=== PATIENT | female | born 1965 | race Caucasian/White ===

== ENCOUNTER 2021-08-30 20:05 | Emergency (ER) | payer MEDICAID, MEDICARE ==
[2021-08-30] MEDS ORDERED: Pantoprazole 40 MG VIAL ONE (21:10)
[2021-08-30] MEDS ORDERED: Morphine 4 MG/ML VIAL ONE (21:10)
[2021-08-30] MEDS ORDERED: Ondansetron PF 4 MG/2 ML Vial ONE (21:10)
[2021-08-30 21:14] LABS: #Basophils 0.1 thou/uL (0.0-0.2); #Eosinphils 0.3 thou/uL (0.0-0.7); #Lymphocytes 3.3 thou/uL (1.20-3.40); #Monocytes 1.7 thou/uL (0.11-0.59); #Neutrophils 7.9 thou/uL (1.40-6.50); %Basophils 0.4 % (0.0-1.0); %Eosinophils 2.5 % (0.0-10.0); %Lymphocytes 24.9 % (21.0-51.0); %Monocytes 12.6 % (0.0-10.0); %Neutrophils 59.5 % (42.0-75.0); Hemoglobin 14.5 g/dL (12.0-16.0); Mean Corpuscular HGB CONC 33.4 g/dL (32.0-36.0); Mean Corpuscular Volume 92.8 fL (78.0-98.0); Mean Platelet Volume 7.6 fL (7.4-10.4); Platelet Count 300 thou/uL (130-400); RBC Distribution Width 13.1 % (11.5-14.5); Red Blood Cell (RBC) Count 4.68 mill/uL (4.20-5.40); White Blood Cell (WBC) Count 13.3 thou/uL (4.8-10.8)
[2021-08-30 21:22] LABS: PTT 35.4 sec (22.9-36.1); Prothrombin Time 13.5 sec (12.0-14.7)
[2021-08-30 21:37] LABS: ALT (SGPT) 19 U/L (8-55); AST (SGOT) 17 U/L (5-34); Albumin 4.6 g/dL (3.5-5.0); Alkaline Phosphatase 151 U/L (40-110); Anion Gap 14 mmol/L (10-20); BUN (Urea Nitrogen) 8 mg/dL (9.8-20.1); Bilirubin, Total 0.4 mg/dL (0.2-1.2); Calc. Creatinine Clearance 0 mL/min (70-130); Calcium 9.8 mg/dL (7.8-10.44); Carbon Dioxide 25 mmol/L (22-29); Chloride 103 mmol/L (98-107); Globulin 3.5 g/dL (2.4-3.5); Glucose 157 mg/dL (70-105); Lipase 55 U/L (8-78); Potassium 3.6 mmol/L (3.5-5.1); Protein, Total 8.1 g/dL (6.0-8.3); Sodium 138 mmol/L (136-145)
== END 2021-08-30 22:44 | disposition home or self-care (01) ==
LOC: ERS 20:05
DX: R11.2 Nausea with vomiting, unspecified (principal); R19.7 Diarrhea, unspecified; E11.9 Type 2 diabetes mellitus without complications
CPT/HCPCS: 36415; 74177; 80053; 82274; 83605; 83690; 85025; 85610; 85730; 86850; 86900; 86901; 94760; 96374; 96375; C9113; J2270; J2405

== ENCOUNTER 2021-08-31 16:37 | Inpatient (IN) | payer MEDICARE, MEDICAID ==
[~2021-08-31 16:37] MED LIST: Iopamidol-370 76% 500 ML 1 ML ONE
[2021-08-31] MEDS ORDERED: Ondansetron PF 4 MG/2 ML Vial ONE (17:34)
[2021-08-31] MEDS ORDERED: Morphine 4 MG/ML VIAL ONE ×2 (17:34→19:44)
[2021-08-31] MEDS ORDERED: Morphine 2 MG/ML VIAL ONE (17:34)
[2021-08-31 17:39] LABS: #Basophils 0.1 thou/uL (0.0-0.2); #Eosinphils 0.4 thou/uL (0.0-0.7); #Lymphocytes 3.6 thou/uL (1.20-3.40); #Monocytes 1.3 thou/uL (0.11-0.59); #Neutrophils 10.5 thou/uL (1.40-6.50); %Basophils 0.6 % (0.0-1.0); %Eosinophils 2.4 % (0.0-10.0); %Lymphocytes 22.7 % (21.0-51.0); %Monocytes 8.2 % (0.0-10.0); %Neutrophils 66.1 % (42.0-75.0); Hemoglobin 14.8 g/dL (12.0-16.0); Mean Corpuscular HGB CONC 34.5 g/dL (32.0-36.0); Mean Corpuscular Hemoglobin 31.7 pg (27.0-31.0); Mean Platelet Volume 7.6 fL (7.4-10.4); Platelet Count 356 thou/uL (130-400); Red Blood Cell (RBC) Count 4.67 mill/uL (4.20-5.40); White Blood Cell (WBC) Count 15.8 thou/uL (4.8-10.8)
[2021-08-31 17:49] LABS: ALT (SGPT) 19 U/L (8-55); AST (SGOT) 21 U/L (5-34); Albumin 4.6 g/dL (3.5-5.0); Alkaline Phosphatase 146 U/L (40-110); Anion Gap 13 mmol/L (10-20); BUN (Urea Nitrogen) 6 mg/dL (9.8-20.1); Bilirubin, Total 0.5 mg/dL (0.2-1.2); Calc. Creatinine Clearance 0 mL/min (70-130); Calcium 9.8 mg/dL (7.8-10.44); Carbon Dioxide 23 mmol/L (22-29); Chloride 103 mmol/L (98-107); Globulin 3.6 g/dL (2.4-3.5); Glucose 188 mg/dL (70-105); Lipase 67 U/L (8-78); Potassium 3.8 mmol/L (3.5-5.1); Protein, Total 8.2 g/dL (6.0-8.3); Sodium 135 mmol/L (136-145)
[2021-08-31 17:51] LABS: INR-International Normal Ratio 0.9; PTT 34.6 sec (22.9-36.1); Prothrombin Time 12.7 sec (12.0-14.7)
[2021-08-31 18:40] LABS: Bilirubin Negative (Negative); Blood, Urine Negative (Negative); Clarity Clear (Clear); Glucose, Urine (Dipstick) Normal (Negative); Ketone, Urine Negative (Negative); Leukocyte Negative Leu/uL (Negative); Nitrite Negative (Negative); Protein, Urine (Dipstick) Negative (Neg-Trace); Specific Gravity, Urine 1.014 (1.002-1.036); Urobilinogen Normal mg/dL (Less than 2); pH, Urine 6.5 (5.0-9.0)
[2021-08-31] MEDS ORDERED: Piperacillin/Tazobactam 3.375 GM VIAL ONE (19:32)
[2021-08-31] MEDS ORDERED: Glycopyrrolate 0.2 MG/ML 5 ML SYRINGE SLOW IVP SCH (19:45)
[2021-08-31 20:20] LABS: Lactic Acid 1.2 mmol/L (0.5-2.2)
[2021-08-31] MEDS ORDERED: Dextrose 50% Abboject 50 ML SYRINGE SLOW IVP PRN (21:36)
[2021-08-31] MEDS ORDERED: HumaLOG 300 UNITS/3 ML VIAL SC PRN (21:36)
[2021-08-31] MEDS ORDERED: Dextrose 5% in Water 1,000 ML IV PRN (21:36)
[2021-08-31] MEDS ORDERED: Ondansetron ODT 4 MG TAB PO PRN (21:41)
[2021-08-31] MEDS ORDERED: Ondansetron PF 4 MG/2 ML Vial IVP PRN (21:41)
[2021-08-31] MEDS ORDERED: Albuterol Sulfate 2.5 mg/3 ml Neb NEB PRN (21:46)
[2021-08-31] MEDS: Nicotine 14 MG PATCH TD SCH (22:51)
[2021-08-31] MEDS: Morphine 2 MG/ML VIAL SLOW IVP PRN (22:52)
[2021-08-31] MEDS: Sodium Chloride 0.9% 1,000 ML IV SCH (22:52)
[2021-08-31] MEDS: Piperacillin/Tazobactam 3.375 GM in Sodium Chloride 0.9% 100 ML IVPB SCH (22:53)
[2021-08-31 23:16] VITALS: BMI 25.0
[2021-09-01] MEDS: Morphine 2 MG/ML VIAL SLOW IVP PRN ×6 (02:50→22:12)
[2021-09-01 05:58] LABS: #Eosinphils 0.3 thou/uL (0.0-0.7); #Lymphocytes 3.3 thou/uL (1.20-3.40); #Monocytes 1.2 thou/uL (0.11-0.59); #Neutrophils 5.5 thou/uL (1.40-6.50); %Basophils 0.4 % (0.0-1.0); %Eosinophils 3.2 % (0.0-10.0); %Lymphocytes 31.5 % (21.0-51.0); %Monocytes 11.5 % (0.0-10.0); %Neutrophils 53.5 % (42.0-75.0); Mean Corpuscular HGB CONC 35.6 g/dL (32.0-36.0); Mean Corpuscular Volume 92.8 fL (78.0-98.0); Mean Platelet Volume 7.7 fL (7.4-10.4); Platelet Count 263 thou/uL (130-400); RBC Distribution Width 13.8 % (11.5-14.5); Red Blood Cell (RBC) Count 3.93 mill/uL (4.20-5.40); White Blood Cell (WBC) Count 10.3 thou/uL (4.8-10.8)
[2021-09-01 06:25] LABS: Anion Gap 11 mmol/L (10-20); BUN (Urea Nitrogen) 5 mg/dL (9.8-20.1); Calc. Creatinine Clearance 85 mL/min (70-130); Calcium 8.8 mg/dL (7.8-10.44); Carbon Dioxide 24 mmol/L (22-29); Chloride 108 mmol/L (98-107); Glucose 72 mg/dL (70-105); Sodium 139 mmol/L (136-145)
[2021-09-01] MEDS: Acetaminophen 325 MG TAB PO PRN ×3 (06:29→22:11)
[2021-09-01] MEDS: Piperacillin/Tazobactam 3.375 GM in Sodium Chloride 0.9% 100 ML IVPB SCH ×3 (08:55→23:21)
[2021-09-01] MEDS: Sodium Chloride 0.9% 1,000 ML IV SCH (08:55)
[2021-09-01] MEDS ORDERED: Pantoprazole 40 MG VIAL IVP SCH (09:00)
[2021-09-01] MEDS ORDERED: Polyethylene Glycol 3350 17 GM Packet PO SCH (09:00)
[2021-09-01] MEDS: Lactated Ringer's 1,000 ML IV SCH (12:11)
[2021-09-01] MEDS ORDERED: Mineral Oil ENEMA PR SCH (13:45)
[2021-09-01] MEDS ORDERED: Hydrochlorothiazide 25 MG TAB PO PRN (14:47)
[2021-09-01 16:12] LABS: SARS-CoV-2 PCR by NAA Not Detected (NotDetected)
[2021-09-01] MEDS: Senokot 8.6 MG TAB PO SCH ×2 (20:15→20:16)
[2021-09-01] MEDS: Polyethylene Glycol 3350 17 GM Packet PO SCH (20:15)
[2021-09-01] MEDS: Nicotine 14 MG PATCH TD SCH (22:11)
[2021-09-02] MEDS: Morphine 2 MG/ML VIAL SLOW IVP PRN ×5 (02:00→20:26)
[2021-09-02] MEDS: Acetaminophen 325 MG TAB PO PRN ×2 (03:59→16:56)
[2021-09-02 06:17] LABS: #Basophils 0.1 thou/uL (0.0-0.2); #Eosinphils 0.3 thou/uL (0.0-0.7); #Lymphocytes 2.4 thou/uL (1.20-3.40); #Monocytes 1.1 thou/uL (0.11-0.59); #Neutrophils 3.8 thou/uL (1.40-6.50); %Basophils 0.8 % (0.0-1.0); %Eosinophils 3.6 % (0.0-10.0); %Lymphocytes 30.9 % (21.0-51.0); %Monocytes 14.1 % (0.0-10.0); %Neutrophils 50.6 % (42.0-75.0); Hemoglobin 12.8 g/dL (12.0-16.0); Mean Corpuscular HGB CONC 35.1 g/dL (32.0-36.0); Mean Corpuscular Hemoglobin 32.4 pg (27.0-31.0); Mean Corpuscular Volume 92.4 fL (78.0-98.0); Mean Platelet Volume 7.3 fL (7.4-10.4); Platelet Count 240 thou/uL (130-400); RBC Distribution Width 12.6 % (11.5-14.5); Red Blood Cell (RBC) Count 3.95 mill/uL (4.20-5.40); White Blood Cell (WBC) Count 7.6 thou/uL (4.8-10.8)
[2021-09-02 06:41] LABS: Anion Gap 13 mmol/L (10-20); BUN (Urea Nitrogen) 5 mg/dL (9.8-20.1); Calc. Creatinine Clearance 90 mL/min (70-130); Calcium 8.9 mg/dL (7.8-10.44); Carbon Dioxide 21 mmol/L (22-29); Chloride 109 mmol/L (98-107); Glucose 121 mg/dL (70-105); Sodium 139 mmol/L (136-145)
[2021-09-02] MEDS: Polyethylene Glycol 3350 17 GM Packet PO SCH ×2 (08:34→20:24)
[2021-09-02] MEDS: Piperacillin/Tazobactam 3.375 GM in Sodium Chloride 0.9% 100 ML IVPB SCH (08:34)
[2021-09-02] MEDS: Losartan 25 MG TAB PO SCH (08:39)
[2021-09-02] MEDS ORDERED: Mineral Oil ENEMA PR SCH (09:00)
[2021-09-02] MEDS ORDERED: Atomoxetine Hcl [Strattera] 80 MG Capsule PO SCH (09:00)
[2021-09-02] MEDS ORDERED: Magnesium Citrate 300 ML BOT PO SCH (09:00)
[2021-09-02] MEDS: lamoTRIgine 100 MG TAB PO SCH (09:09)
[2021-09-02] MEDS: Letrozole 2.5 MG TAB PO SCH (09:09)
[2021-09-02 13:44] LABS: Hemoglobin 13.7 g/dL (12.0-16.0)
[2021-09-02] MEDS: Dicyclomine 20 MG TAB PO SCH ×2 (16:54→20:23)
[2021-09-02] MEDS: Senokot 8.6 MG TAB PO SCH (20:25)
[2021-09-02] MEDS: Lactated Ringer's 1,000 ML IV SCH (20:29)
[2021-09-02] MEDS: Nicotine 14 MG PATCH TD SCH (23:15)
[2021-09-03] MEDS: Acetaminophen 325 MG TAB PO PRN ×2 (01:27→23:22)
[2021-09-03] MEDS: Morphine 2 MG/ML VIAL SLOW IVP PRN ×5 (01:28→20:40)
[2021-09-03 06:01] LABS: Anion Gap 11 mmol/L (10-20); BUN (Urea Nitrogen) Less than 4 mg/dL (9.8-20.1); Calc. Creatinine Clearance 87 mL/min (70-130); Calcium 8.9 mg/dL (7.8-10.44); Carbon Dioxide 27 mmol/L (22-29); Chloride 107 mmol/L (98-107); Glucose 137 mg/dL (70-105); Potassium 3.7 mmol/L (3.5-5.1); Sodium 141 mmol/L (136-145)
[2021-09-03 06:41] LABS: Band 4 % (5-11); Eosinophils 4 % (0-10); Hemoglobin 12.6 g/dL (12.0-16.0); Lymphocytes 41 % (21-51); MDiff Complete? YES; Mean Corpuscular HGB CONC 34.2 g/dL (32.0-36.0); Mean Corpuscular Hemoglobin 31.8 pg (27.0-31.0); Mean Platelet Volume 7.1 fL (7.4-10.4); Monocytes 10 % (0-10); Neutrophil 41 % (42-75); Platelet Count 265 thou/uL (130-400); RBC Distribution Width 12.7 % (11.5-14.5); Red Blood Cell (RBC) Count 3.97 mill/uL (4.20-5.40); White Blood Cell (WBC) Count 7.7 thou/uL (4.8-10.8)
[2021-09-03] MEDS ORDERED: GoLYTELY 4,000 ml Bottle PO SCH (09:00)
[2021-09-03] MEDS: Polyethylene Glycol 3350 17 GM Packet PO SCH ×2 (09:10→20:40)
[2021-09-03] MEDS: Dicyclomine 20 MG TAB PO SCH ×4 (09:10→20:40)
[2021-09-03] MEDS: lamoTRIgine 100 MG TAB PO SCH (09:10)
[2021-09-03] MEDS: Losartan 25 MG TAB PO SCH (09:11)
[2021-09-03] MEDS: Letrozole 2.5 MG TAB PO SCH (09:32)
[2021-09-03] MEDS: Senokot 8.6 MG TAB PO SCH (20:40)
[2021-09-03] MEDS: Nicotine 14 MG PATCH TD SCH (23:23)
[2021-09-04] MEDS: Lactated Ringer's 1,000 ML IV SCH (01:23)
[2021-09-04] MEDS: Morphine 2 MG/ML VIAL SLOW IVP PRN ×5 (01:23→21:24)
[2021-09-04] MEDS: Dicyclomine 20 MG TAB PO SCH ×4 (09:15→20:42)
[2021-09-04] MEDS ORDERED: PROPOFOL 200 MG/20 ML VIAL ONE (09:30)
[2021-09-04] MEDS ORDERED: Promethazine HCl 25 MG/ML VIAL IVPB PRN (09:54)
[2021-09-04] MEDS ORDERED: Ondansetron HCl/PF 4 MG/2 ML Vial IVP PRN (09:54)
[2021-09-04] MEDS ORDERED: Promethazine HCl 25 MG/ML VIAL IM PRN (09:54)
[2021-09-04] MEDS: Polyethylene Glycol 3350 17 GM Packet PO SCH ×3 (10:50→20:42)
[2021-09-04] MEDS: Senokot 8.6 MG TAB PO SCH ×2 (10:51→20:44)
[2021-09-04 11:19] LABS: #Eosinphils 0.2 thou/uL (0.0-0.7); #Lymphocytes 2.3 thou/uL (1.20-3.40); #Monocytes 0.9 thou/uL (0.11-0.59); #Neutrophils 4.5 thou/uL (1.40-6.50); %Basophils 0.3 % (0.0-1.0); %Eosinophils 3.1 % (0.0-10.0); %Lymphocytes 29.3 % (21.0-51.0); %Monocytes 11.6 % (0.0-10.0); %Neutrophils 55.8 % (42.0-75.0); Hemoglobin 13.7 g/dL (12.0-16.0); Mean Corpuscular HGB CONC 34.2 g/dL (32.0-36.0); Mean Corpuscular Hemoglobin 31.7 pg (27.0-31.0); Mean Corpuscular Volume 92.7 fL (78.0-98.0); Mean Platelet Volume 8.2 fL (7.4-10.4); Platelet Count 109 thou/uL (130-400); Platelet Morphology Comment PLT clumps seen-ADEQ; RBC Distribution Width 12.7 % (11.5-14.5); RBC Morphology Normal; Red Blood Cell (RBC) Count 4.32 mill/uL (4.20-5.40)
[2021-09-04 11:20] LABS: Anion Gap 13 mmol/L (10-20); BUN (Urea Nitrogen) Less than 4 mg/dL (9.8-20.1); Calc. Creatinine Clearance 84 mL/min (70-130); Carbon Dioxide 20 mmol/L (22-29); Chloride 107 mmol/L (98-107); Glucose 160 mg/dL (70-105); Potassium 3.9 mmol/L (3.5-5.1); Sodium 136 mmol/L (136-145)
[2021-09-04] MEDS: lamoTRIgine 100 MG TAB PO SCH (12:23)
[2021-09-04] MEDS: Losartan 25 MG TAB PO SCH (12:23)
[2021-09-04] MEDS: Letrozole 2.5 MG TAB PO SCH (12:23)
[2021-09-05] MEDS: HumaLOG 300 UNITS/3 ML VIAL SC PRN ×2 (05:52→10:50)
[2021-09-05] MEDS: Polyethylene Glycol 3350 17 GM Packet PO SCH (07:39)
[2021-09-05] MEDS: Dicyclomine 20 MG TAB PO SCH (07:39)
[2021-09-05] MEDS: lamoTRIgine 100 MG TAB PO SCH (07:39)
[2021-09-05] MEDS: Letrozole 2.5 MG TAB PO SCH (07:40)
[2021-09-05] MEDS: Losartan 25 MG TAB PO SCH (07:40)
[2021-09-05] MEDS: Morphine 2 MG/ML VIAL SLOW IVP PRN (10:45)
[2021-09-05 11:31] VITALS: BP 118/87; TEMP 98.1
== END 2021-09-05 12:55 | disposition home or self-care (01) | DRG 393 ==
LOC: ERS 16:37 → SURG A 20:35 → OBSVTOIN 09-03 12:47
PROVIDERS: ADMIT Hospitalist; ATTEND Hospitalist
PROC: 3E03329 Introduction of Other Anti-infective into Peripheral Vein, Percutaneous Approach (ICD-10-PCS; 2021-08-31)
PROC: 0DBM8ZZ Excision of Descending Colon, Via Natural or Artificial Opening Endoscopic (ICD-10-PCS; principal; 2021-09-04)
DX: K63.89 Other specified diseases of intestine (principal); A41.9 Sepsis, unspecified organism; E87.1 Hypo-osmolality and hyponatremia; E87.2 Acidosis; K92.1 Melena; K63.5 Polyp of colon; E11.43 Type 2 diabetes mellitus with diabetic autonomic (poly)neuropathy; Z20.822 Contact with and (suspected) exposure to COVID-19; I10 Essential (primary) hypertension; F31.9 Bipolar disorder, unspecified; E78.5 Hyperlipidemia, unspecified; D45 Polycythemia vera; K21.9 Gastro-esophageal reflux disease without esophagitis; K31.84 Gastroparesis; J45.909 Unspecified asthma, uncomplicated; F17.210 Nicotine dependence, cigarettes, uncomplicated; K59.00 Constipation, unspecified; R15.9 Full incontinence of feces; Z88.5 Allergy status to narcotic agent; Z85.3 Personal history of malignant neoplasm of breast; Z88.8 Allergy status to other drugs, medicaments and biological substances; Z79.51 Long term (current) use of inhaled steroids; Z79.84 Long term (current) use of oral hypoglycemic drugs; Z79.899 Other long term (current) drug therapy; Z90.710 Acquired absence of both cervix and uterus; Z98.890 Other specified postprocedural states
CPT/HCPCS: 36415; 36416; 74177; 80048; 80053; 81003; 83605; 83690; 85025; 85610; 85730; 87040; 87086; 88305; 96365; 96366; 96374; 96375; 96376; C9113; G0378; J1815; J2270; J2405; J2543; J2704; J3490; J7050; J7120; Q9967; U0003; U0005

== ENCOUNTER 2021-09-25 11:08 | Outpatient (CLI) | payer MEDICARE, OTHER | END 2021-09-25 11:09 | disposition home or self-care (01) | LOC: BICRAD 11:08 | PROVIDERS: ATTEND Physician Assistant Medical | DX: K21.9 Gastro-esophageal reflux disease without esophagitis (principal); R79.89 Other specified abnormal findings of blood chemistry; R10.9 Unspecified abdominal pain; K31.84 Gastroparesis | CPT/HCPCS: 74018 ==

== ENCOUNTER 2021-09-30 04:03 | Observation (INO) | payer MEDICARE, MEDICAID ==
[2021-09-30] MEDS ORDERED: Haloperidol Lactate 5 MG/ML VIAL ONE (05:09)
[2021-09-30 05:39] LABS: #Basophils 0.1 thou/uL (0.0-0.2); #Eosinphils 0.6 thou/uL (0.0-0.7); #Lymphocytes 3.3 thou/uL (1.20-3.40); #Monocytes 1.8 thou/uL (0.11-0.59); #Neutrophils 9.7 thou/uL (1.40-6.50); %Basophils 0.6 % (0.0-1.0); %Eosinophils 3.6 % (0.0-10.0); %Lymphocytes 21.2 % (21.0-51.0); %Monocytes 11.5 % (0.0-10.0); %Neutrophils 63.1 % (42.0-75.0); Hemoglobin 14.2 g/dL (12.0-16.0); Mean Corpuscular Hemoglobin 30.4 pg (27.0-31.0); Mean Corpuscular Volume 89.5 fL (78.0-98.0); Mean Platelet Volume 7.3 fL (7.4-10.4); Platelet Count 312 thou/uL (130-400); RBC Distribution Width 11.6 % (11.5-14.5); Red Blood Cell (RBC) Count 4.68 mill/uL (4.20-5.40); White Blood Cell (WBC) Count 15.4 thou/uL (4.8-10.8)
[2021-09-30 06:01] LABS: ALT (SGPT) 19 U/L (8-55); AST (SGOT) 19 U/L (5-34); Albumin 4.2 g/dL (3.5-5.0); Alkaline Phosphatase 144 U/L (40-110); Anion Gap 12 mmol/L (10-20); BUN (Urea Nitrogen) 8 mg/dL (9.8-20.1); Bilirubin, Total 0.6 mg/dL (0.2-1.2); Calc. Creatinine Clearance 0 mL/min (70-130); Calcium 9.6 mg/dL (7.8-10.44); Carbon Dioxide 27 mmol/L (22-29); Chloride 104 mmol/L (98-107); Globulin 3.6 g/dL (2.4-3.5); Glucose 118 mg/dL (70-105); Lipase 71 U/L (8-78); Potassium 3.8 mmol/L (3.5-5.1); Protein, Total 7.8 g/dL (6.0-8.3); Sodium 139 mmol/L (136-145)
[2021-09-30] MEDS ORDERED: Morphine 2 MG/ML VIAL SLOW IVP PRN (06:44)
[2021-09-30] MEDS ORDERED: Acetaminophen 325 MG TAB PO PRN (06:45)
[2021-09-30] MEDS ORDERED: Ondansetron PF 4 MG/2 ML Vial IVP PRN ×2 (06:45→13:48)
[2021-09-30] MEDS ORDERED: Sodium Chloride 0.9% 1,000 ML IV SCH (06:45)
[2021-09-30] MEDS ORDERED: Ondansetron ODT 4 MG TAB SL PRN (06:45)
[2021-09-30 07:58] VITALS: BMI 23.7
[2021-09-30 09:47] LABS: Pregnancy Test - Urine (BHCG) Negative (Negative); Pregu Control Background? CLEAR/WHITE (CLR/WHITE); Pregu Control Bar Appear? YES (CONTROL BAR); Specific Gravity 1.006 (1.002-1.036)
[2021-09-30 10:40] LABS: SARS-CoV-2 NAA Rapid Test Not Detected (NotDetected)
[2021-09-30] MEDS ORDERED: Bupivacaine 0.25% 10 ML VIAL ONE (11:48)
[2021-09-30] MEDS ORDERED: Iopamidol 30 ML ONE (11:48)
[2021-09-30] MEDS ORDERED: Lidocaine 1% w/Epinephrine 1:100K 20 ML VIAL ONE (11:48)
[2021-09-30] MEDS ORDERED: fentaNYL Citrate/PF 100 MCG/2 ML SYRINGE ONE (11:52)
[2021-09-30] MEDS ORDERED: cefOXitin 2 GM VIAL ONE (12:07)
[2021-09-30] MEDS ORDERED: Sodium Chloride 0.9% 100 ML ONE (12:07)
[2021-09-30] MEDS ORDERED: Succinylcholine 200 MG/10 ml SYRINGE FS ONE (12:20)
[2021-09-30] MEDS ORDERED: Glycopyrrolate 0.2 MG/ML 5 ML SYRINGE ONE (12:20)
[2021-09-30] MEDS ORDERED: Rocuronium Bromide 10 MG/ML (10ML VIAL) ONE (12:20)
[2021-09-30] MEDS ORDERED: PROPOFOL 200 MG/20 ML VIAL ONE (12:20)
[2021-09-30] MEDS ORDERED: Ondansetron PF 4 MG/2 ML Vial ONE (12:20)
[2021-09-30] MEDS ORDERED: Lidocaine 1% PF 5 ML VIAL ONE (12:20)
[2021-09-30] MEDS ORDERED: Fentanyl 100 MCG/2 ML VIAL ONE ×2 (13:32→14:08)
[2021-09-30] MEDS ORDERED: Dextrose 50% Abboject 50 ML SYRINGE SLOW IVP PRN (13:48)
[2021-09-30] MEDS ORDERED: Calcium Carbonate 500 MG ChewTAB PO PRN (13:48)
[2021-09-30] MEDS ORDERED: D5 1/2 NS w/20 mEq KCL 1,000 ML IV SCH (13:48)
[2021-09-30] MEDS ORDERED: Mag-Al 1200 mg/1200 mg/30 ML UDCUP PO PRN (13:48)
[2021-09-30] MEDS ORDERED: hydrALAZINE 20 MG/ML VIAL SLOW IVP PRN (13:48)
[2021-09-30] MEDS ORDERED: traMADol HCl 50 MG TAB PO PRN ×2 (13:48)
[2021-09-30] MEDS ORDERED: Morphine 4 MG/ML VIAL SLOW IVP PRN (13:48)
[2021-09-30] MEDS ORDERED: Promethazine HCl 25 MG/ML VIAL IM PRN (13:48)
[2021-09-30] MEDS ORDERED: Dextrose 5% in Water 1,000 ML IV PRN (13:48)
[2021-09-30 14:49] VITALS: BP 138/64; TEMP 98.3
[2021-09-30] MEDS ORDERED: Famotidine 20 MG TAB PO SCH (21:00)
[2021-09-30] MEDS ORDERED: Famotidine/PF 20 mg/2ml Vial SLOW IVP SCH (21:00)
== END 2021-09-30 16:53 | disposition home or self-care (01) ==
LOC: ERS 04:03 → INTOOBSV 06:40 → MSONC 06:40
PROVIDERS: ADMIT Surgery; ATTEND Surgery
PROC: 0FT44ZZ Resection of Gallbladder, Percutaneous Endoscopic Approach (ICD-10-PCS; principal; 2021-09-30)
PROC: BF001ZZ Plain Radiography of Bile Ducts using Low Osmolar Contrast (ICD-10-PCS; 2021-09-30)
DX: K80.12 Calculus of gallbladder with acute and chronic cholecystitis without obstruction (principal); G89.29 Other chronic pain; E11.9 Type 2 diabetes mellitus without complications; K59.09 Other constipation; J44.9 Chronic obstructive pulmonary disease, unspecified; Z85.3 Personal history of malignant neoplasm of breast; Z79.2 Long term (current) use of antibiotics; Z79.811 Long term (current) use of aromatase inhibitors; Z79.84 Long term (current) use of oral hypoglycemic drugs; Z79.899 Other long term (current) drug therapy; Z88.5 Allergy status to narcotic agent; Z88.6 Allergy status to analgesic agent; Z20.822 Contact with and (suspected) exposure to COVID-19
CPT/HCPCS: 47532; 47563; 76705; 80053; 81025; 83690; 85025; 96374; 99285; C1713; J2270; U0002; 36415; 88304; J0694; J1630; J2405; J2704; J3010; J3480; J3490; J7050; Q9967; S0020

== ENCOUNTER 2022-07-23 18:34 | Emergency (ER) | payer OTHER, MEDICAID, MEDICARE ==
[2022-07-23] MEDS ORDERED: Dexamethasone 4 MG TAB ONE (19:07)
[2022-07-23] MEDS ORDERED: HYDROcodone/Acetaminophen 5/325 mg Tablet ONE (19:07)
[2022-07-23] MEDS ORDERED: Ibuprofen 200 MG TAB ONE (19:15)
[2022-07-23 19:43] LABS: #Basophils 0.1 thou/uL (0.0-0.2); #Eosinphils 0.4 thou/uL (0.0-0.7); #Lymphocytes 3.7 thou/uL (1.20-3.40); #Monocytes 1.7 thou/uL (0.11-0.59); #Neutrophils 8.8 thou/uL (1.40-6.50); %Basophils 0.8 % (0.0-1.0); %Eosinophils 2.8 % (0.0-10.0); %Lymphocytes 24.9 % (21.0-51.0); %Monocytes 11.6 % (0.0-10.0); %Neutrophils 59.9 % (42.0-75.0); Hemoglobin 13.6 g/dL (12.0-16.0); Mean Corpuscular Hemoglobin 25.7 pg (27.0-31.0); Mean Corpuscular Volume 80.5 fl (78.0-98.0); Mean Platelet Volume 8.2 fL (7.4-10.4); Platelet Count 320 10x3/uL (130-400); RBC Distribution Width 12.9 % (11.5-14.5); Red Blood Cell (RBC) Count 5.29 mill/uL (4.20-5.40); White Blood Cell (WBC) Count 14.7 10x3/uL (4.8-10.8)
[2022-07-23 20:06] LABS: ALT (SGPT) 23 U/L (8-55); AST (SGOT) 21 U/L (5-34); Albumin 4.3 g/dL (3.5-5.0); Alkaline Phosphatase 164 U/L (40-110); Anion Gap 16 mmol/L (10-20); BUN (Urea Nitrogen) 5 mg/dL (9.8-20.1); Bilirubin, Total 0.5 mg/dL (0.2-1.2); Calc. Creatinine Clearance 0 mL/min (70-130); Calcium 9.4 mg/dL (7.8-10.44); Carbon Dioxide 19 mmol/L (22-29); Chloride 104 mmol/L (98-107); Estimated GFR 79; Globulin 3.4 g/dL (2.4-3.5); Glucose 142 mg/dL (70-105); Potassium 3.7 mmol/L (3.5-5.1); Protein, Total 7.7 g/dL (6.0-8.3); Sodium 135 mmol/L (136-145)
== END 2022-07-23 20:36 | disposition home or self-care (01) ==
LOC: ERS 18:34
DX: R09.1 Pleurisy (principal); E11.9 Type 2 diabetes mellitus without complications; I10 Essential (primary) hypertension; F17.210 Nicotine dependence, cigarettes, uncomplicated
CPT/HCPCS: 36415; 71045; 80053; 84484; 85025; 85379; 93005; 96372; J8540

== ENCOUNTER 2022-11-15 14:52 | Emergency (ER) | payer OTHER, MEDICAID, MEDICARE ==
[~2022-11-15 14:52] MED LIST changes: -Iopamidol-370 76% 500 ML 1 ML ONE; +Iopamidol-370 76% 500 ML MDV (1 ML CHARGE) ONE
[2022-11-15] MEDS ORDERED: Ondansetron PF 4 MG/2 ML Vial ONE (15:41)
[2022-11-15] MEDS ORDERED: Morphine 4 MG/ML VIAL ONE (15:41)
[2022-11-15 15:48] LABS: #Basophils 0.1 thou/uL (0.0-0.2); #Eosinphils 0.2 thou/uL (0.0-0.7); #Monocytes 1.3 thou/uL (0.11-0.59); #Neutrophils 10.6 thou/uL (1.40-6.50); %Basophils 0.4 % (0.0-1.0); %Eosinophils 1.7 % (0.0-10.0); %Lymphocytes 10.9 % (21.0-51.0); %Monocytes 9.2 % (0.0-10.0); %Neutrophils 77.4 % (42.0-75.0); Hemoglobin 14.2 g/dL (12.0-16.0); Mean Corpuscular HGB CONC 34.4 g/dL (32.0-36.0); Mean Corpuscular Hemoglobin 26.5 pg (27.0-31.0); Mean Corpuscular Volume 77.1 fl (78.0-98.0); Platelet Count 303 10x3/uL (130-400); RBC Distribution Width 13.2 % (11.5-14.5); Red Blood Cell (RBC) Count 5.36 mill/uL (4.20-5.40); White Blood Cell (WBC) Count 13.7 10x3/uL (4.8-10.8)
[2022-11-15] MEDS ORDERED: Dicyclomine 20 MG TAB ONE (16:36)
[2022-11-15] MEDS ORDERED: Famotidine/PF 20 mg/2ml Vial ONE (16:36)
[2022-11-15] MEDS ORDERED: Mag-Al 1200 mg/1200 mg/30 ML UDCUP ONE (18:03)
[2022-11-15 18:22] LABS: Bacteria/HPF None Seen HPF (None Seen); Bilirubin Negative (Negative); Blood, Urine Negative (Negative); CAUTI Indications for Culture Fever or rigors; Clarity Clear (Clear); Glucose, Urine (Dipstick) Normal (Negative); Ketone, Urine Negative (Negative); Leukocyte Negative Leu/uL (Negative); Nitrite Negative (Negative); Protein, Urine (Dipstick) Negative (Neg-Trace); RBC/HPF 0-3 HPF (0-3); Specific Gravity, Urine 1.032 (1.002-1.036); Squamous Epithelial 0-3 HPF (0-3); Urobilinogen Normal mg/dL (Less than 2); WBC/HPF 0-3 HPF (0-3)
[2022-11-15 18:24] LABS: Urine Culture Reflex No No
[2022-11-15 19:14] LABS: Albumin 4.2 g/dL (3.5-5.0)
[2022-11-15 19:15] LABS: Chloride 102 mmol/L (98-107); Potassium 4.2 mmol/L (3.5-5.1); Sodium 133 mmol/L (136-145)
[2022-11-15 19:16] LABS: Calcium 9.3 mg/dL (7.8-10.44); Glucose 96 mg/dL (70-105)
[2022-11-15 19:17] LABS: Globulin 3.3 g/dL (2.4-3.5); Protein, Total 7.5 g/dL (6.0-8.3)
[2022-11-15 19:18] LABS: Anion Gap 15 mmol/L (10-20); Bilirubin, Total 1.1 mg/dL (0.2-1.2); Carbon Dioxide 20 mmol/L (22-29)
[2022-11-15 19:19] LABS: Alkaline Phosphatase 270 U/L (40-110)
[2022-11-15 19:20] LABS: BUN (Urea Nitrogen) 5 mg/dL (9.8-20.1); Calc. Creatinine Clearance 0 mL/min (70-130); Estimated GFR 65
[2022-11-15 19:21] LABS: AST (SGOT) 39 U/L (5-34)
[2022-11-15 19:22] LABS: ALT (SGPT) 22 U/L (8-55); Magnesium 1.5 mg/dL (1.6-2.6)
[2022-11-15 19:23] LABS: Lipase 45 U/L (8-78)
== END 2022-11-15 20:24 | disposition home or self-care (01) ==
LOC: ERS 14:52
DX: R10.11 Right upper quadrant pain (principal); R19.7 Diarrhea, unspecified; R79.89 Other specified abnormal findings of blood chemistry; D72.829 Elevated white blood cell count, unspecified; E11.9 Type 2 diabetes mellitus without complications; F17.210 Nicotine dependence, cigarettes, uncomplicated
CPT/HCPCS: 36415; 71046; 74177; 80053; 81001; 83690; 83735; 84484; 85025; 93005; 96361; 96374; 96375; J2270; J2405; Q9967; S0028

== ENCOUNTER 2023-04-15 15:07 | Emergency (ER) | payer OTHER, MEDICAID | END 2023-04-15 16:53 | disposition home or self-care (01) | LOC: ERS 15:07 | DX: J11.1 Influenza due to unidentified influenza virus with other respiratory manifestations (principal); E11.9 Type 2 diabetes mellitus without complications; F17.210 Nicotine dependence, cigarettes, uncomplicated | CPT/HCPCS: 99283 ==